=== PATIENT | female | born 1995 | race Caucasian/White ===

== ENCOUNTER 2025-03-14 12:45 | Inpatient (IN) | payer MEDICAID, OTHER ==
[2025-03-14] VITALS (8 sets, daily range): BP systolic 120–143; BP diastolic 54–81; PULSE 80–87; RESP 14–18; TEMP 98–98.3; O2SAT 98
[~2025-03-14] VITALS: Ht 165.1 cm; Wt 133.6 kg
--- NOTE | 2025-03-14 14:45 | ED.PDOC ---
History of Present Illness HPI Comments 29-year-old female presents to the ER with no prior history associated to the chief complaint of abnormal labs. Patient reports the she had blood given to the PCP yesterday and was called earlier today due from having a hemoglobin of 6.4. Patient takes needs a blood transfusion to so within the patient can get a myomectomy Sx. Denies chills, fever, N/V/D, SOB, CP. No other associated symptoms, modifiers, recent injuries or sick contacts present at this time. Chief Complaint: Abnormal LAB's Time Seen by MD: 14:05 Reviewed Notes: Nurses Notes, Medications, Allergies Allergies: Coded Allergies: NO KNOWN ALLERGIES (Unverified , 03/14/25) Information Source: Patient Mode of Arrival: Ambulatory Severity: Moderate Timing: Minutes Duration: Since onset, Minutes Prehospital treatment: None Past Medical History PAST MEDICAL HISTORY: Denies Surgical History: Denies all surgeries EMERGENCY SERVICES DIRECTOR History: No Pertinent EMERGENCY SERVICES DIRECTOR History Family History Family History: Reviewed,noncontributory to illness, Unknown Social History Smoker: Non-Smoker Alcohol: Denies ETOH Use Drugs: Denies Drug Use Lives In: Home Constitutional: reports: others (Blood transfusion); denies: chills, diaphoresis, fatigue, fever, malaise, sweats, weakness EENTM: denies: blurred vision, double vision, ear bleeding, ear discharge, ear drainage, ear pain, ear ringing, eye pain, eye redness, hearing loss, mouth pain, mouth swelling, nasal discharge, nose bleeding, nose congestion, nose pain, photophobia, tearing, throat pain, throat swelling, voice changes, others Respiratory: denies: cough, hemoptysis, orthopnea, SOB at rest, shortness of breath, SOB with excertion, stridor, wheezing, others Cardiovascular: denies: chest pain, dizzy spells, diaphoresis, Dyspnea on exertion, edema, irregular heart beat, left arm pain, lightheadedness, pa lpitations, PND, syncope, others Gastrointestinal: denies: abdomen distended, abdominal pain, blood streaked bowels, constipated, diarrhea, dysphagia, difficulty swallowing, hematemesis, melena, nausea, poor appetite, poor fluid intake, rectal bleeding, rectal pain, vomiting, others Genitourinary: denies: abnormal vagina bleeding, burning, dyspareunia, dysuria, flank pain, frequency, hematuria, incontinence, pain, , vagina discharge, urgency, others Neurological: denies: dizziness, fainting, headache, left sided numbness, left sided weakness, numbness, paresthesia, pre-existing deficit, right sided numbness, right sided weakness, seizure, speech problems, tingling, tremors, weakness, others Musculoskeletal: denies: back pain, gout, joint pain, joint swelling, muscle pain, muscle stiffness, neck pain, others Integumetry: denies: bruises, change in color, change in hair/nails, dryness, laceration, lesions, lumps, rash, wounds, others Allergic/Immunocompromised: denies: Difficulty Healing, Frequent Infections, Hives, Itching, others Hematologic/Lymphatic: denies: anemia, blood clots, easy bleeding, easy bruising, swollen glands, others Endocrine: denies: excessive hunger, excessive sweating, excessive thirst, excessive urination, flushing, intolerance to cold, intolerance to heat, unexplained weight gain, unexplained weight loss, others Psychiatric: denies: anxiety, bipolar disorder, depression, hopeless, panic disorder, schizophrenia, sleepless, suicidal, others All Other Systems: Reviewed and Negative Physical Exam General Appearance: No Apparent Distress, Normal HEENT: Normal ENT Inspection, Pharynx Normal, TMs Normal Neck: Full Range of Motion, Non-Tender, Normal, Normal Inspection Respiratory: Chest Non-Tender, Lungs Clear, No Accessory Muscle Use, No Respiratory Distress, Normal Breath Sounds Cardiovascular: No Edema, No JVD, No Murmur, No Gallop, Normal Peripheral Pulses, Regular Rate/Rhythm Breast Exam: Deferred Gastrointestinal: No Organomegaly, Non Tender, No Pulsatile Mass, Normal Bowel Sounds, Soft Genitalia: Deferred Pelvic: Deferred Rectal: Deferred Extremities: No calf tenderness, Normal capillary refill, Normal inspection, Normal range of motion, Non-tender, No pedal edema Musculoskeletal : Apperance: Normal Neurologic: Alert, loading unit operator crimping II-XII nml as Tested, No Motor Deficits, Normal Affect, Normal Mood, No Sensory Deficits Cerebellar Function: Normal Reflexes: Normal Skin: Dry, Normal Color, Warm Lymphatic: No Adenopathy Was a procedure done? Was a procedure done?: No Differential Dx Considerations may include: Symptomatic anemia, X-Ray, Labs, Meds, VS Vital Signs Date Time Temp Pulse Resp B/P (MAP) Pulse Ox O2 Delivery O2 Flow Rate FiO2 03/14/25 13:10 99.5 88 16 147/85 (105) 97 99.5 Lab Test 03/14/25 14:30 03/14/25 13:30 Range/Units White Blood Count 5.4 4.4-10.8 10^3/uL Red Blood Count 3.61 L 4.0-5.20 10^6/uL Hemoglobin 6.7 *L 12.2-16.2 g/dL Hematocrit 22.8 L 36.0-46.0 % Mean Corpuscular Volume 63.2 L 80.0-100.0 fL Mean Corpuscular Hemoglobin 18.5 L 28.0-32.0 pg Mean Corpuscular Hemoglobin Concent 29.3 L 32.0-36.0 g/dL Red Cell Distribution Width 19.4 H 11.8-14.3 % Platelet Count 421 140-450 10^3/uL Mean Platelet Volume 7.6 6.9-10.8 fL Neutrophils (%) (Auto) 47.7 37.0-80.0 % Lymphocytes (%) (Auto) 30.9 10.0-50.0 % Monocytes (%) (Auto) 11.9 0.0-12.0 % Eosinophils (%) (Auto) 8.6 H 0.0-7.0 % Basophils (%) (Auto) 0.9 0.0-2.0 % Neutrophils # (Auto) 2.6 1.6-8.6 10 ^3/uL Lymphocytes # (Auto) 1.7 0.4-5.4 10 ^3/uL Monocytes # (Auto) 0.6 0-1.3 10 ^3/uL Eosinophils # (Auto) 0.5 0-0.8 10 ^3/uL Basophils # (Auto) 0 0-0.2 10 ^3/uL Nucleated Red Blood Cells 0.1 % Platelet Estimate Adequate Hypochromasia (manual) Marked Microcytosis Marked Prothrombin Time 10.9 9.3-11.8 sec Prothrombin Time INR 1.03 0.9-1.15 Activated Partial Thromboplast Time 25.2 24.5-34.5 SEC Sodium Level 139 136-145 mmol/L Potassium Level 3.5 3.5-5.1 mmol/L Chloride Level 105 98-107 mmol/L Carbon Dioxide Level 25 20-31 mmol/L Anion Gap 9 5-15 Blood Urea Nitrogen 8 L 9-23 mg/dL Creatinine 0.82 0.550-1.02 mg/dL Glomerular Filtration Rate Calc 99 >90 mL/min BUN/Creatinine Ratio 9.8 L 10.0-20.0 Serum Glucose 100 74-106 mg/dL Calcium Level 9.7 8.7-10.4 mg/dL Urine Color Pending Urine Clarity Pending Urine pH Pending Urine Specific [place] Pending Urine Protein Pending Urine Ketones Pending Urine Blood Pending Urine Nitrite Pending Urine Bilirubin Pending Urine Urobilinogen Pending Urine Leukocyte Esterase Pending Urine RBC Pending Urine Microscopic WBC Pending Urine Squamous Epithelial Cells Pending Urine Bacteria Pending Urine Glucose Pending Time of 1ST Reevaluation: 14:35 Reevaluation 1ST: Unchanged Patient Education/Counseling: Diagnosis, Treatment, Prognosis Family Education/Counseling: No Family Present Departure 1 Departure Time of Disposition: 16:07 (Patient presents with symptomatic anemia. We will order a transfusion admit patient for further workup.) Impression: Primary Impression: Symptomatic anemia Additional Impression: Near syncope Disposition: ADMITTED INPATIENT Admit to: Med Surg Condition: Serious Critical Care Note Critical Care Time?: Yes Critical care comment: Near-syncope Authorized and Performed by: Janette De Paz MD Total critical care time: Approximately 37 minutes Due to a high probability of clinically significant, life threatening deterioration, the patient required my highest level of preparedness to intervene emergently and I personally spent this critical care time directly and personally managing the patient. This critical care time included obtaining a history; examining the patient; pulse oximetry; ordering and review of studies; arranging urgent treatment with development of a management plan; evaluation of patient's response to treatment; frequent reassessment; and, discussions with other providers. This critical care time was performed to assess and manage the high probability of imminent, life-threatening deterioration that could result in multi-organ failure. It was exclusive of separately billable procedures and treating other patients and teaching time. Please see my other sections and the rest of the note for further information on patient assessment and treatment. Stability Stability form required: No I personally scribed for JANETTE DE PAZ MD ([email or web address]) on 03/14/25 at 14:45. Electronically submitted by Warren Barbour ([email or web address]). JANETTE DE PAZ MD March 14, 2025 14:45
[2025-03-14 14:59] LABS: Eosinophils # (auto) 0.5 10 ^3/uL (0-0.8); Mean Corpuscular Hemoglobin 18.5 pg (28.0-32.0); Monocytes # (auto) 0.6 10 ^3/uL (0-1.3); Neutrophils # (auto) 2.6 10 ^3/uL (1.6-8.6)
[2025-03-14 15:01] LABS: Basophils # (auto) 0 10 ^3/uL (0-0.2); Basophils % (auto) 0.9 % (0.0-2.0); Eosinophils % (auto) 8.6 % (0.0-7.0); Hematocrit 22.8 % (36.0-46.0); Lymphocytes # (auto) 1.7 10 ^3/uL (0.4-5.4); Lymphocytes % (auto) 30.9 % (10.0-50.0); Mean Corpuscular Hgb Conc. 29.3 g/dL (32.0-36.0); Mean Corpuscular Volume 63.2 fL (80.0-100.0); Monocytes % (auto) 11.9 % (0.0-12.0); Neutrophils % (auto) 47.7 % (37.0-80.0); Nucleated Red Blood Cells % 0.1 %; Platelet Count (auto) 421 10^3/uL (140-450); Red Blood Cells 3.61 10^6/uL (4.0-5.20); Red Cell Distribution Width 19.4 % (11.8-14.3); White Blood Cell 5.4 10^3/uL (4.4-10.8)
[2025-03-14 15:03] LABS: Hemoglobin 6.7 g/dL (12.2-16.2)
[2025-03-14 15:04] LABS: Hypochromia Marked; Platelet Estimate Adequate
[2025-03-14 15:07] LABS: Chloride 105 mmol/L (98-107); Sodium 139 mmol/L (136-145)
[2025-03-14 15:08] LABS: Anion Gap 9 (5-15); Calcium 9.7 mg/dL (8.7-10.4); Carbon Dioxide 25 mmol/L (20-31)
[2025-03-14 15:10] LABS: Potassium 3.5 mmol/L (3.5-5.1)
[2025-03-14 15:13] LABS: BUN/Creatinine Ratio 9.8 (10.0-20.0); Glucose 100 mg/dL (74-106)
[2025-03-14 15:15] LABS: INR 1.03 (0.9-1.15); Partial Thromboplastin Time 25.2 SEC (24.5-34.5); Prothrombin Time 10.9 sec (9.3-11.8)
[2025-03-14 15:21] LABS: Blood Urea Nitrogen 8 mg/dL (9-23)
[2025-03-14 15:59] LABS: Urine Bacteria None Seen /hpf (None Seen)
[2025-03-14 16:12] LABS: Urine Blood Negative /uL (Negative); Urine Clarity Clear (Clear); Urine Color Light-Yellow (Yellow); Urine Protein, UAD Negative (Negative); Urine Specific Gravity 1.015 (1.001-1.035); Urine Squamous Epithelial Cell None Seen /hpf (<5); Urine Urobilinogen Normal (Negative); Urine WBC < 1 /HPF (0-5); Urine pH 5.5 (5.0-9.0)
[2025-03-14] MEDS: SODIUM CHLORIDE 0.9% 1,000 ML IV ONE (17:46)
[2025-03-14] MEDS ORDERED: SODIUM CHLORIDE 0.9% 1,000 ML IV SCH (23:00)
[2025-03-14] MEDS ORDERED: NITROGLYCERIN 0.4 MG SL TAB SL PRN (23:00)
[2025-03-14] MEDS ORDERED: ONDANSETRON HCL 4 MG/2 ML VIAL IV PRN (23:00)
[2025-03-14] MEDS ORDERED: MORPHINE SULFATE INJ 2 MG/ml SYRG IV PRN ×2 (23:00)
[2025-03-14 23:42] LABS: % Iron Saturation 55.7 % (15-50); Triglycerides 76 mg/dL (< 150)
[2025-03-14 23:43] LABS: LDL Cholesterol 77 mg/dL (< 100)
[2025-03-14 23:44] LABS: Cholesterol 128 mg/dL (< 200)
[2025-03-14 23:46] LABS: HDL Cholesterol 40 mg/dL (40-59)
[2025-03-14 23:48] LABS: Cannabinoid Screen, Urine Pos (NEGATIVE)
[2025-03-14 23:53] LABS: Amphetamine Screen, Urine Neg (NEGATIVE); Barbiturate Scree,Urine Neg (NEGATIVE); Benzodiazephine Screen, Urine Neg (NEGATIVE); Opiate Scree,Urine Neg (NEGATIVE); Phencyclidine Screen, Urine Neg (NEGATIVE)
[2025-03-15 00:02] LABS: Thyroid Stimulating Hormone 1.17 uIU/mL (0.55-4.78)
[2025-03-15 00:30] VITALS: BP 137/67; PULSE 80; RESP 16; TEMP 98.2
[2025-03-15 00:47] LABS: Cocaine Screen, Urine Neg (NEGATIVE)
[2025-03-15 01:30] VITALS: BP 131/58; PULSE 88; RESP 16; TEMP 98.6
[2025-03-15 01:47] VITALS: BP 135/56; PULSE 78; RESP 16; TEMP 98.3
[2025-03-15] MEDS: SODIUM CHLORIDE 0.9% 1,000 ML IV SCH (01:50)
[2025-03-15 02:00] VITALS: BP 135/58; PULSE 80; RESP 16; TEMP 98.2
[2025-03-15 05:00] VITALS: BP 146/81; PULSE 79; RESP 21; O2SAT 99
[2025-03-15 05:30] LABS: Basophils # (auto) 0.1 10 ^3/uL (0-0.2); Hemoglobin 7.9 g/dL (12.2-16.2); Monocytes # (auto) 0.7 10 ^3/uL (0-1.3); Nucleated Red Blood Cells % 0.1 %; White Blood Cell 6.1 10^3/uL (4.4-10.8)
[2025-03-15 05:33] LABS: Basophils % (auto) 1.4 % (0.0-2.0); Eosinophils # (auto) 0.6 10 ^3/uL (0-0.8); Eosinophils % (auto) 9.3 % (0.0-7.0); Hematocrit 25.8 % (36.0-46.0); Lymphocytes # (auto) 1.9 10 ^3/uL (0.4-5.4); Mean Corpuscular Hemoglobin 20.3 pg (28.0-32.0); Mean Corpuscular Hgb Conc. 30.5 g/dL (32.0-36.0); Mean Corpuscular Volume 66.5 fL (80.0-100.0); Monocytes % (auto) 11.5 % (0.0-12.0); Neutrophils # (auto) 2.9 10 ^3/uL (1.6-8.6); Neutrophils % (auto) 46.8 % (37.0-80.0); Platelet Count (auto) 400 10^3/uL (140-450); Red Blood Cells 3.88 10^6/uL (4.0-5.20); Red Cell Distribution Width 23.4 % (11.8-14.3)
[2025-03-15 05:44] LABS: Alanine Aminotransferase 11 U/L (7-40); Albumin 4.2 g/dL (3.2-4.8); Alkaline Phosphatase 67 U/L (46-116); Anion Gap 10 (5-15); BUN/Creatinine Ratio 13.2 (10.0-20.0); Blood Urea Nitrogen 10 mg/dL (9-23); Calcium 8.9 mg/dL (8.7-10.4); Carbon Dioxide 22 mmol/L (20-31); Glucose 90 mg/dL (74-106); Potassium 3.9 mmol/L (3.5-5.1); Sodium 140 mmol/L (136-145); Total Protein 7.2 g/dL (5.7-8.2)
[2025-03-15 05:45] LABS: Bilirubin, Total 0.5 mg/dL (0.2-1.0)
[2025-03-15 05:54] LABS: Aspartate Aminotransferase 9 U/L (13-40); Chloride 108 mmol/L (98-107)
--- NOTE | 2025-03-15 06:21 | DVHHPRES ---
History of Present Illness Resident Creating Document: CAROLA FENTON RESIDENT Reason for Visit: severe anemia History of Present Illness 29 year old female patient with past medical history of uterine fibroid and asthma who presents to the ER with the chief complain of generalized fatigue and generalized weakness for the pas weeks associated with severe anemia due to uterine fibroids, she was found to have hb level on 6.4 for which she was give 1 PRBC.She reports the symptoms progressively got worse during the past month , and she noted a lack of appetite and fatigue as she was dealing with more stress at home related with financial issues and grief azul to a maternal lost on Sep. She denies any other acute complaint. 1 PRBC was given to the patient and we going to follow up on hb in the morning, she will need an obgyn evaluation for further management of the fibroids. Review of Systems Review of Systems Constitutional: denies: chills, diaphoresis, fatigue, fever, malaise, sweats, weakness EENTM: denies: blurred vision, double vision, ear bleeding, ear discharge, ear drainage, ear pain, ear ringing, eye pain, eye redness, hearing loss, mouth pain, mouth swelling, nasal discharge, nose bleeding, nose congestion, nose pain, photophobia, tearing, throat pain, throat swelling, voice changes, others Respiratory: denies: cough, hemoptysis, orthopnea, SOB at rest, shortness of breath, SOB with excertion, stridor, wheezing, others Cardiovascular: denies: chest pain, dizzy spells, diaphoresis, Dyspnea on exertion, edema, irregular heart beat, left arm pain, lightheadedness, palpitations, PND, syncope, others Gastrointestinal: denies: abdomen distended, abdominal pain, blood streaked bowels, constipated, diarrhea, dysphagia, difficulty swallowing, hematemesis, melena, nausea, poor appetite, poor fluid intake, rectal bleeding, rectal pain, vomiting, others Genitourinary: denies: abnormal vagina bleeding, burning, dyspareunia, dysuria, flank pain, frequency, hematuria, incontinence, pain, , vagina discharge, urgency, others Neurological: denies: dizziness, fainting, headache, left sided numbness, left sided weakness, numbness, paresthesia, pre-existing deficit, right sided numbness, right sided weakness, seizure, speech problems, tingling, tremors, weakness, others Hematologic/Lymphatic: yes anemia no: blood clots, easy bleeding, easy bruising, swollen glands, others Endocrine: denies: excessive hunger, excessive sweating, excessive thirst, excessive urination, flushing, intolerance to cold, intolerance to heat, unexplained weight gain, unexplained weight loss, others Psychiatric: yes: anxiety no: bipolar disorder, depression, hopeless, panic disorder, schizophrenia, sleepless, suicidal, others All Other Systems: Reviewed and Negative Allergies: Coded Allergies: NO KNOWN ALLERGIES (Unverified , 03/14/25) Medications Current Medications Medications Dose Ordered Sig/Daphne Route Start Time Stop Time Status Last Admin Dose Admin Ondansetron HCl 4 mg Q4HP PRN IV 03/14/25 23:00 Morphine Sulfate 2 mg Q4HPRN PRN IV 03/14/25 23:00 Nitroglycerin 0.4 mg Q5MINP PRN SL 03/14/25 23:00 Morphine Sulfate 2 mg Q30M PRN IV 03/14/25 23:00 Sodium Chloride 1,000 ml @ 120 mls/hr Q8H20M IV 03/14/25 23:30 03/15/25 01:50 120 MLS/HR Exam Vital Signs Vital Signs Date Time Temp Pulse Resp B/P (MAP) Pulse Ox O2 Delivery O2 Flow Rate FiO2 03/15/25 05:00 79 21 146/81 (102) 99 03/15/25 02:00 98.2 98.2 03/14/25 19:30 Room Air* 0 21 Exam General Appearance: No Apparent Distress, Normal HEENT: Normal ENT Inspection, Pharynx Normal, TMs Normal Neck: Full Range of Motion, Non-Tender, Normal, Normal Inspection Respiratory: Chest Non-Tender, Lungs Clear, No Accessory Muscle Use, No Respiratory Distress, Normal Breath Sounds Cardiovascular: No Edema, No JVD, No Murmur, No Gallop, Normal Peripheral Pulses, Regular Rate/Rhythmd Gastrointestinal: No Organomegaly, Non Tender, No Pulsatile Mass, Normal Bowel Sounds, Soft Extremities: No calf tenderness, Normal capillary refill, Normal inspection, Normal range of motion, Non-tender, No pedal edema Labs/Xrays Labs Test 03/15/25 05:10 03/14/25 14:30 5/15/25 13:30 Range/Units White Blood Count 6.1 4.4-10.8 10^3/uL Red Blood Count 3.88 L 4.0-5.20 10^6/uL Hemoglobin 7.9 #L 12.2-16.2 g/dL Hematocrit 25.8 #L 36.0-46.0 % Mean Corpuscular Volume 66.5 #L 80.0-100.0 fL Mean Corpuscular Hemoglobin 20.3 L 28.0-32.0 pg Mean Corpuscular Hemoglobin Concent 30.5 L 32.0-36.0 g/dL Red Cell Distribution Width 23.4 H 11.8-14.3 % Platelet Count 400 140-450 10^3/uL Mean Platelet Volume 7.3 6.9-10.8 fL Neutrophils (%) (Auto) 46.8 37.0-80.0 % Lymphocytes (%) (Auto) 31.0 10.0-50.0 % Monocytes (%) (Auto) 11.5 0.0-12.0 % Eosinophils (%) (Auto) 9.3 H 0.0-7.0 % Basophils (%) (Auto) 1.4 0.0-2.0 % Neutrophils # (Auto) 2.9 1.6-8.6 10 ^3/uL Lymphocytes # (Auto) 1.9 0.4-5.4 10 ^3/uL Monocytes # (Auto) 0.7 0-1.3 10 ^3/uL Eosinophils # (Auto) 0.6 0-0.8 10 ^3/uL Basophils # (Auto) 0.1 0-0.2 10 ^3/uL Nucleated Red Blood Cells 0.1 % Sodium Level 140 136-145 mmol/L Potassium Level 3.9 3.5-5.1 mmol/L Chloride Level 108 H 98-107 mmol/L Carbon Dioxide Level 22 20-31 mmol/L Anion Gap 10 5-15 Blood Urea Nitrogen 10 9-23 mg/dL Creatinine 0.76 0.550-1.02 mg/dL Glomerular Filtration Rate Calc 109 >90 mL/min BUN/Creatinine Ratio 13.2 10.0-20.0 Serum Glucose 90 74-106 mg/dL Calcium Level 8.9 8.7-10.4 mg/dL Total Bilirubin 0.5 0.2-1.0 mg/dL Aspartate Amino Transferase (AST) 9 L 13-40 U/L Alanine Aminotransferase (ALT) 11 7-40 U/L Alkaline Phosphatase 67 46-116 U/L Total Protein 7.2 5.7-8.2 g/dL Albumin 4.2 3.2-4.8 g/dL Platelet Estimate Adequate Hypochromasia (manual) Marked Microcytosis Marked Reticulocyte Count (auto) 2.08 H 0.5-1.5 % Prothrombin Time 10.9 9.3-11.8 sec Prothrombin Time INR 1.03 0.9-1.15 Activated Partial Thromboplast Time 25.2 24.5-34.5 SEC Iron Level 241 H 50-170 ug/dL Total Iron Binding Capacity 433 H 250-425 ug/dL Percent Iron Saturation 55.7 H 15-50 % Ferritin 1.9 L 10-291 ng/mL Lactate Dehydrogenase 161 120-246 U/L Triglycerides Level 76 < 150 mg/dL Cholesterol Level 128 < 200 mg/dL LDL Cholesterol 77 < 100 mg/dL HDL Cholesterol 40 40-59 mg/dL Thyroid Stimulating Hormone (TSH) 1.17 0.55-4.78 uIU/mL Urine Color Light-yellow Yellow Urine Clarity Clear Clear Urine pH 5.5 5.0-9.0 Urine Specific [place] 1.015 1.001-1.035 Urine Protein Negative Negative Urine Ketones Negative Negative Urine Blood Negative Negative /uL Urine Nitrite Negative Negative Urine Bilirubin Negative Negative Urine Urobilinogen Normal Negative mg/dL Urine Leukocyte Esterase Negative Negative /uL Urine RBC <1 0 - 4 /hpf Urine Microscopic WBC < 1 0-5 /HPF Urine Squamous Epithelial Cells None seen <5 /hpf Urine Bacteria None seen None Seen /hpf Urine Glucose Normal Normal mg/dL Urine Test Negative Negative Urine Opiates Screen Neg NEGATIVE Urine Fentanyl Screen Neg NEGATIVE Urine Barbiturates Screen Neg NEGATIVE Urine Phencyclidine Screen Neg NEGATIVE Urine Amphetamines Screen Neg NEGATIVE Urine Benzodiazepines Screen Neg NEGATIVE Urine Cocaine Screen Neg NEGATIVE Urine Cannabinoids Screen Pos NEGATIVE Assessment/Plan Assessment/Plan severe anemia secondary to uterine fibroids a/p transfusion leiomyoma morbid obesity asthma ?essential hypertension Iron deficienct anemia plan: Admit to telemetry no active bleeding NaCl 0.9% maintenance fluids 1 PRBC monitor on labs am H&H case discussed with code status: full code Plan discussed with: Patient My Orders Orders - CAROLA FENTON Procedure Category Date Status Time Admit ADMIT 03/14/25 Transmitted 22:57 Allergies ALEXSANDER 03/14/25 In Process 22:57 Code Status CODE 03/14/25 Transmitted 22:57 Oxygen Per Hour RT 03/14/25 Transmitted 22:57 Ondansetron Hcl PHA 03/14/25 In Process (Zofran) 23:00 Fall Risk Precautions ALEXSANDER 03/14/[address] 22:57 Condition: Unstable ALEXSANDER 03/14/25 In Process 22:57 Morphine Sulfate PHA 03/14/25 In Process Injection 23:00 Nitroglycerin PHA 03/14/25 In Process Sublingual (Ntrostat 23:00 Morphine Sulfate PHA 03/14/25 In Process Injection 23:00 Oxygen By Nasal RT 03/14/25 Transmitted Cannula 22:57 Stat Ekg For Chest ALEXSANDER 03/14/25 In Process Pain 22:57 Notify Of Changes ALEXSANDER 03/14/25 In Process From Base 22:57 Lightout Examiner For ALEXSANDER 03/14/25 In Process 24 Hours 22:57 Emergency Dysrhythmia ALEXSANDER 03/14/25 In Process Protocol 22:57 Rhythm Strips Once ALEXSANDER 03/14/25 In Process Every Shift 22:57 Sodium Chloride 0.9% PHA 03/14/25 In Process 23:30 * Electron Microprobe Operator Consultation CONS 03/14/25 Transmitted 23:16 CAROLA FENTON RESIDENT March 15, 2025 06:21
== END 2025-03-15 06:03 | disposition left against medical advice (07) | DRG 532 ==
LOC: ER 12:50 → OVERFLOW 22:57
PROVIDERS: ATTEND Emergency Medicine
PROC: 30233N1 Transfusion of Nonautologous Red Blood Cells into Peripheral Vein, Percutaneous Approach (ICD-10-PCS; principal; 2025-03-14)
DX: D25.9 Leiomyoma of uterus, unspecified (principal); D50.9 Iron deficiency anemia, unspecified; I10 Essential (primary) hypertension; J45.909 Unspecified asthma, uncomplicated; Z53.29 Procedure and treatment not carried out because of patient's decision for other reasons; E66.01 Morbid (severe) obesity due to excess calories; Z68.42 Body mass index [BMI] 45.0-49.9, adult
CPT/HCPCS: 36415; 80048; 80053; 80061; 80307; 81001; 81025; 82728; 83540; 83550; 83615; 84443; 85025; 85045; 85610; 85730; 86850; 86900; 86901; 86920; 96360; 99291; G0378